=== PATIENT | female | born 1950 ===

== ENCOUNTER 2021-04-09 09:45 | Inpatient (IN) | payer OTHER ==
[~2021-04-09] VITALS: Ht 160 cm; Wt 89.8 kg
[2021-04-09] MEDS ORDERED: MULTIPLE VITAM1 EAC2 PO (11:46)
[2021-04-09] MEDS ORDERED: CHILDREN'S ASPI81 MG PO (11:46)
[2021-04-13] MEDS ORDERED: REFRESH TEARS15 ML (09:41)
[2021-04-13] MEDS ORDERED: EMERGEN-C 1,01000 MG (09:42)
[2021-04-13] MEDS ORDERED: SUPER B-COMPL400 MCG (09:42)
[2021-04-13] MEDS ORDERED: REFRESH OPTIVE10 M1 (09:42)
[2021-04-13] MEDS ORDERED: STRESS B-COMPL1 EACH (09:42)
[2021-04-13] MEDS ORDERED: VITAMIN D3250 MCG (09:42)
[2021-04-13] MEDS ORDERED: VITAMIN C500 M6 (09:42)
[2021-04-13] MEDS ORDERED: SYSTANE COMPLE1.5 ML (09:42)
[2021-04-13] MEDS ORDERED: CALCIUM 600 +1 EAC4 (09:43)
[2021-04-16] MEDS ORDERED: ELIQUIS2.5 MG PO (07:52)
[2021-04-16] MEDS ORDERED: PERCOCET 5-3251 EACH PO (07:52)
[2021-04-16] MEDS ORDERED: DUI500 PO (07:52)
== END 2021-04-16 14:21 | DRG 470 ==
LOC: MEDI 04-13 05:46 → O/R 04-13 05:46 → SURH 04-13 09:15 → MEDI 04-13 16:07 → SURH 04-14 15:28
PROVIDERS: ADMIT Orthopaedic Surgery; ATTEND Orthopaedic Surgery
PROC: 3E0F7SF Introduction of Other Gas into Respiratory Tract, Via Natural or Artificial Opening (ICD-10-PCS; 2021-04-13)
PROC: 0SRC0J9 Replacement of Right Knee Joint with Synthetic Substitute, Cemented, Open Approach (ICD-10-PCS; principal; 2021-04-13 09:15)
DX: M17.11 Unilateral primary osteoarthritis, right knee (principal); D62 Acute posthemorrhagic anemia; M81.8 Other osteoporosis without current pathological fracture; M25.861 Other specified joint disorders, right knee; M22.11 Recurrent subluxation of patella, right knee; E66.8 Other obesity; Z86.16 Personal history of COVID-19; Z72.0 Tobacco use